=== PATIENT | female | born 1965 | race Two or more races ===

== ENCOUNTER 2017-05-23 18:45 | Emergency (ER) | payer BC, OTHER ==
[2017-05-23] MEDS ORDERED: Albuterol/Ipratropium 3.0-0.5 MG/3 ML Neb Soln NEB ONE (19:18)
--- NOTE | 2017-05-23 19:20 | EDM.PDOC ---
ED HPI GENERAL MEDICAL PROBLEM - General Chief Complaint: Respiratory Problem Stated Complaint: LUNGS Time Seen by Provider: 05/23/17 19:19 Source of Information: Reports: Patient - History of Present Illness INITIAL COMMENTS - FREE TEXT/NARRATIVE: HISTORY AND PHYSICAL: History of present illness: []Patient complains of productive cough with sputum and subjective fever for 1 days no nausea vomiting chills sweats no shortness of breath she states that earlier she had coughing fits that lasted most of the afternoon No chest pain headache dizziness or palpitation no bowel or urine symptoms Review of systems: As per history of present illness and below otherwise all systems reviewed and negative. Past medical history: As per history of present illness and as reviewed below otherwise noncontributory. Surgical history: As per history of present illness and as reviewed below otherwise noncontributory. Social history: No reported history of drug or alcohol abuse. Family history: As per history of present illness and as reviewed below otherwise noncontributory. Physical exam: HEENT: Atraumatic, normocephalic, pupils reactive, negative for conjunctival pallor or scleral icterus, mucous membranes moist, throat clear, neck supple, nontender, trachea midline. Lungs: Clear to auscultation, breath sounds equal bilaterally, chest nontender. Heart: S1S2, regular, negative for clicks, rubs, or JVD. Abdomen: Soft, nondistended, nontender. Negative for masses or hepatosplenomegaly. Negative for costovertebral tenderness. Pelvis: Stable nontender. Genitourinary: Deferred. Rectal: Deferred. Extremities: Atraumatic, negative for cords or calf pain. Neurovascular unremarkable. Neuro: Awake, alert, oriented. Cranial nerves II through XII unremarkable. Cerebellum unremarkable. Motor and sensory unremarkable throughout. Exam nonfocal. Diagnostics: []Chest 2 views Therapeutics: []Humidified air Z-Jimbo Impression: []Acute bronchitis Definitive disposition and diagnosis as appropriate pending reevaluation and review of above. no pain Pain Score (Numeric/FACES): 0 - Related Data Allergies Allergy/AdvReac Type Severity Reaction Status Date / Time Penicillins Allergy Other Verified 05/23/17 19:03 Home Meds: Home Meds ClonazePAM [KlonoPIN] 0.5 mg PO BID 07/12/16 [History] Lisinopril 40 mg PO DAILY 07/12/16 [History] Metoprolol Succinate [Toprol XL] 100 mg PO DAILY 07/12/16 [History] fluvoxaMINE [fluvoxaMINE Maleate] 100 mg PO TID 07/12/16 [History] Past Medical History HEENT History: Reports: None Cardiovascular History: Reports: Hypertension, Other (See Below) Other Cardiovascular History: heart ablation Respiratory History: Reports: None Gastrointestinal History: Reports: None Genitourinary History: Reports: None 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: Musculoskeletal History: Reports: None Neurological History: Reports: None Psychiatric History: Reports: Anxiety, PTSD Endocrine/Metabolic History: Reports: None Hematologic History: Reports: None Immunologic History: Reports: None Oncologic (Cancer) History: Reports: None Dermatologic History: Reports: None - Infectious Disease History Infectious Disease History: Reports: Chicken Pox - Past Surgical History Head Surgeries/Procedures: Reports: None Social & Family History - Family History Family Medical History: Noncontributory - Tobacco Use Smoking Status *Q: Never Smoker - Caffeine Use Caffeine Use: Reports: Tea - Recreational Drug Use Recreational Drug Use: No ED ROS GENERAL - Review of Systems Review Of Systems: ROS reveals no pertinent complaints other than HPI. ED EXAM, GENERAL - Physical Exam Exam: See Below Course - Vital Signs Last Recorded V/S: Last Vital Signs Temp 36.9 C 05/23/17 19:04 Pulse 79 05/23/17 19:04 Resp 18 05/23/17 19:04 BP 141/73 H 05/23/17 19:04 Pulse Ox 98 05/23/17 19:04 - Orders/Labs/Meds Orders: Active Orders 24 hr Category Date Time Status RT Aerosol Therapy [RC] ASDIRECTED Care 05/23/17 19:18 Active Chest 2V [CR] Stat Exams 05/23/17 19:18 Taken Meds: Medications Discontinued Medications Generic Name Dose Route Start Last Admin Trade Name Freq PRN Reason Stop Dose Admin Albuterol/Ipratropium 3 ml 05/23/17 19:18 Duoneb 3.0-0.5 Mg/3 Ml NEB 05/23/17 19:19 ONETIME ONE Departure - Departure Time of Disposition: 20:12 Disposition: Home, Self-Care 01 Condition: Good Clinical Impression: Acute bronchitis - Discharge Information Referrals: PCP,None [Primary Care Provider] - Forms: ED Department Discharge Additional Instructions: Medication as prescribed Return if symptoms persist or worsen Follow-up with primary care in 2 weeks [facility] - [facility] [address] [place] [id number] The following information is given to patients seen in the emergency department who are being discharged to home. This information is to outline your options for follow-up care. We provide all patients seen in our emergency department with a follow-up referral. The need for follow-up, as well as the timing and circumstances, are variable depending upon the specifics of your emergency department visit. If you don't have a primary care physician on staff, we will provide you with a referral. We always advise you to contact your personal physician following an emergency department visit to inform them of the circumstance of the visit and for follow-up with them and/or the need for any referrals to a consulting specialist. The emergency department will also refer you to a specialist when appropriate. This referral assures that you have the opportunity for follow-up care with a specialist. All of these measure are taken in an effort to provide you with optimal care, which includes your follow-up. Under all circumstances we always encourage you to contact your private physician who remains a resource for coordinating your care. When calling for follow-up care, please make the office aware that this follow-up is from your recent emergency room visit. If for any reason you are refused follow-up, please contact the [facility] emergency department at and asked to speak to the emergency department charge nurse. - My Orders Last 24 Hours: My Active Orders 05/23/17 19:18 RT Aerosol Therapy [RC] ASDIRECTED Chest 2V [CR] Stat - Assessment/Plan Last 24 Hours: My Active Orders 05/23/17 19:18 RT Aerosol Therapy [RC] ASDIRECTED Chest 2V [CR] Stat
[2017-05-23 21:50] VITALS: BP 132/70
--- NOTE | 2017-05-24 10:56 | CR ---
EXAM DATE: 05/23/17 PATIENT'S AGE: 51 Patient: LAURA HARRISON Facility: [place], [place] Site . Site : 1965 Study: XRay Chest [id number] 7:40:02 PM Ordering Physician: Heidi Daniels Final Report: INDICATION: Pain, shortness of breath TECHNIQUE: Chest radiograph 2 views COMPARISON: 07/12/16 FINDINGS: Cardiovascular and mediastinum: The cardiac silhouette is normal in appearance and size. Mediastinum is within normal limits. Lungs and pleural spaces: Both lungs are unremarkable in appearance. No sign of pleural effusion. No pneumothorax is seen. Bones and soft tissues: No significant findings. IMPRESSION: 1. No acute cardiopulmonary disease seen. Dictated by: Canelo Prabhakar MD @ 05/23/2017 19:50:55 (Electronic Signature) Report Signed by Proxy. [facility] HOSPITALFelicita
== END 2017-05-23 20:35 | disposition home or self-care (01) ==
LOC: MW.ED 18:45
DX: J20.9 Acute bronchitis, unspecified (principal); I10 Essential (primary) hypertension; F41.9 Anxiety disorder, unspecified; Z79.899 Other long term (current) drug therapy; Z88.0 Allergy status to penicillin
CPT/HCPCS: 71020; 71020-26; 99282; 99283

== ENCOUNTER 2017-05-24 09:47 | Emergency (ER) | payer BC, OTHER ==
[2017-05-24] MEDS ORDERED: Famotidine 20 MG/2 ML SDV IVPUSH ONE (09:58)
[2017-05-24] MEDS ORDERED: diphenhydrAMINE 50 MG/ML SDV IVPUSH ONE (09:58)
[2017-05-24] MEDS ORDERED: methylPREDNISolone Sodium Succinate 125 MG/2 ML SDV IVPUSH ONE (10:05)
--- NOTE | 2017-05-24 10:09 | EDM.PDOC ---
ED HPI GENERAL MEDICAL PROBLEM - General Chief Complaint: Allergic Reaction Stated Complaint: ALLERGIC REACTION - Related Data Allergies Allergy/AdvReac Type Severity Reaction Status Date / Time Penicillins Allergy Other Verified 05/24/17 09:52 Home Meds: Home Meds ClonazePAM [KlonoPIN] 0.5 mg PO BID 07/12/16 [History] Lisinopril 40 mg PO DAILY 07/12/16 [History] Metoprolol Succinate [Toprol XL] 100 mg PO DAILY 07/12/16 [History] fluvoxaMINE [fluvoxaMINE Maleate] 100 mg PO TID 07/12/16 [History] Past Medical History - Past Health History Medical/Surgical History: Denies Medical/Surgical History HEENT History: Reports: None Cardiovascular History: Reports: Hypertension, Other (See Below) Other Cardiovascular History: heart ablation;SVT Respiratory History: Reports: None Gastrointestinal History: Reports: None Genitourinary History: Reports: None 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: Musculoskeletal History: Reports: None Neurological History: Reports: None Psychiatric History: Reports: Anxiety, PTSD Endocrine/Metabolic History: Reports: None Hematologic History: Reports: None Immunologic History: Reports: None Oncologic (Cancer) History: Reports: None Dermatologic History: Reports: None - Infectious Disease History Infectious Disease History: Reports: Chicken Pox - Past Surgical History Head Surgeries/Procedures: Reports: None Social & Family History - Family History Family Medical History: Noncontributory - Tobacco Use Smoking Status *Q: Never Smoker - Caffeine Use Caffeine Use: Reports: Tea - Recreational Drug Use Recreational Drug Use: No Course - Vital Signs Last Recorded V/S: Last Vital Signs Temp 36.6 C 05/24/17 09:47 Pulse 128 H 05/24/17 09:47 Resp 24 H 05/24/17 09:47 BP 193/104 H 05/24/17 09:47 Pulse Ox 98 05/24/17 09:47 - Orders/Labs/Meds Meds: Medications Discontinued Medications Generic Name Dose Route Start Last Admin Trade Name Freq PRN Reason Stop Dose Admin Diphenhydramine HCl 25 mg 05/24/17 09:58 05/24/17 10:04 Benadryl IVPUSH 05/24/17 09:59 25 mg ONETIME ONE Administration Famotidine 20 mg 05/24/17 09:58 10/04/17 10:04 Pepcid IVPUSH 05/24/17 09:59 20 mg ONETIME ONE Administration Methylprednisolone Sodium Succinate 50 mg 05/24/17 10:05 Solu-Medrol IVPUSH 05/24/17 10:06 ONETIME ONE Departure - Discharge Information Referrals: PCP,Unknown [Primary Care Provider] -
--- NOTE | 2017-05-24 10:10 | PCM.SN ---
- Free Text/Narrative Note: This is Dr. Correa dictating addendum note as the supervising physician on this case. I personally seen and evaluated this patient and agree with history and physical as above. On my evaluation there is only minimal edema of the upper aspect of the lateral left lip and the remainder the lips are within normal limits as is the tongue and oropharynx. There is no facial swelling no stridor no shortness of breath and no evidence of any urticarial rash. The patient says she took the Zithromax she was given yesterday when she left the ER and is taking in the past without problems. The patient says she takes blood pressure medications including lisinopril and has been on it many years without a reaction. I discussed with her that she will likely need to stop her lisinopril as this is a very classic presentation of germain-induced angioedema although it is very mild. We will treat her with Benadryl Pepcid and Solu- Medrol and advised her to contact her provider for change of medications for her hypertension we'll continue to monitor here and disposition appropriately.
--- NOTE | 2017-05-24 11:02 | EDM.PDOC ---
<Jesus Hein Z - Last Filed: 05/24/17 11:21> ED HPI GENERAL MEDICAL PROBLEM - General Chief Complaint: Allergic Reaction Stated Complaint: ALLERGIC REACTION Time Seen by Provider: 05/24/17 09:48 Source of Information: Reports: Patient History Limitations: Reports: No Limitations - History of Present Illness INITIAL COMMENTS - FREE TEXT/NARRATIVE: HISTORY AND PHYSICAL: History of present illness: 51-year-old female presenting with angioedema isolated to the left lateral upper lip. Patient states that she had just eaten barbecue ribs as well as a salad this morning and right after she noticed swelling of her upper left lip, she became very concerned and immediately decided to come to the ER. Patient states that she's never had an allergic reaction in the past causing swelling of her lips or respiratory compromise. Aside from penicillins she is not aware of any other medical allergies. She is unaware of any food allergies. She was just diagnosed with acute bronchitis last night and was given azithromycin which she took yesterday. She has been on azithromycin in the past and has never had an allergic reaction, nor does she feel that she had any allergic reaction to it at this point in time. She has been taking lisinopril for the past 10 years without any allergic reaction that she is aware of. The last time she took lisinopril was yesterday morning. Review of systems: As per history of present illness and below otherwise all systems reviewed and negative. Past medical history: As per history of present illness and as reviewed below otherwise noncontributory. Surgical history: As per history of present illness and as reviewed below otherwise noncontributory. Social history: No reported history of drug or alcohol abuse. Family history: As per history of present illness and as reviewed below otherwise noncontributory. Physical exam: Constitutional: Patient appears very agitated/anxious secondary to concerns about allergic reaction HEENT: Atraumatic, normocephalic, pupils reactive, negative for conjunctival pallor or scleral icterus, mucous membranes moist, angioedema/swelling of lateral left upper lip, the rest of the aspects of the lips appear normal, throat clear no signs of swelling nor any stridor heard, neck supple, nontender , trachea midline. Lungs: Clear to auscultation, breath sounds equal bilaterally, chest nontender. Heart: S1S2, regular, negative for clicks, rubs, or JVD. Abdomen: Soft, nondistended, nontender. Negative for masses or hepatosplenomegaly. Pelvis: Stable nontender. Genitourinary: Deferred. Rectal: Deferred. Extremities: Atraumatic, no swelling appreciated in all 4 extremities Neuro: Awake, alert, oriented. Cranial nerves II through XII unremarkable. Diagnostics: None Therapeutics: Initial ER management : Benadryl, Pepcid, Solu-Medrol. Reassessment: 30 minutes after patient receiving Benadryl, Pepcid, Solu-Medrol patient appears more calm, angioedema of the left upper lip is improving, no signs of any point in time of respiratory compromise. Impression: 51-year-old female on lisinopril for hypertension presenting with acute angioedema isolated to the left lateral upper lip, most likely etiology is lisinopril-induced angioedema allergic reaction. Plan: Patient after therapeutic intervention with Benadryl Pepcid and Solu-Medrol is stable. Patient did not at any point in time during the ER visit to have worsening symptoms of allergic reaction nor any respiratory distress. Patient shall be sent home with the recommendation to stop taking lisinopril and follow up with her primary care physician within 1 to 2 days for reassessment of her medications. Patient has been given prednisone taper dose for 3 days as well as Benadryl for her allergic reaction, and has been told that if she has worsening of her symptoms including respiratory compromise, stridor, wheezing to coming to the ER immediately or follow up with her primary care for assessment. Definitive disposition and diagnosis as appropriate pending reevaluation and review of above. - Related Data Allergies Allergy/AdvReac Type Severity Reaction Status Date / Time Penicillins Allergy Other Verified 05/24/17 09:52 Home Meds: Home Meds ClonazePAM [KlonoPIN] 0.5 mg PO BID 07/12/16 [History] Lisinopril 40 mg PO DAILY 07/12/16 [History] Metoprolol Succinate [Toprol XL] 100 mg PO DAILY 07/12/16 [History] fluvoxaMINE [fluvoxaMINE Maleate] 100 mg PO TID 07/12/16 [History] diphenhydrAMINE HCl [Benadryl Allergy] 25 mg PO Q4HR PRN 3 Days #18 tablet 05/24 [Rx] predniSONE [Prednisone] 10 mg PO DAILY #4 tablet 05/24/17 [Rx] Past Medical History - Past Health History Medical/Surgical History: Denies Medical/Surgical History HEENT History: Reports: None Cardiovascular History: Reports: Hypertension, Other (See Below) Other Cardiovascular History: heart ablation;SVT Respiratory History: Reports: None Gastrointestinal History: Reports: None Genitourinary History: Reports: None 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 History: Reports: None Neurological History: Reports: None Psychiatric History: Reports: Anxiety, PTSD Endocrine/Metabolic History: Reports: None Hematologic History: Reports: None Immunologic History: Reports: None Oncologic (Cancer) History: Reports: None Dermatologic History: Reports: None - Infectious Disease History Infectious Disease History: Reports: Chicken Pox - Past Surgical History Head Surgeries/Procedures: Reports: None Social & Family History - Family History Family Medical History: Noncontributory - Tobacco Use Smoking Status *Q: Never Smoker - Caffeine Use Caffeine Use: Reports: Tea - Recreational Drug Use Recreational Drug Use: No ED ROS ALLERGIC REACTION - Review of Systems Review Of Systems: ROS reveals no pertinent complaints other than HPI. ED EXAM GENERAL NO PERIP PULSE - Physical Exam Exam: See Below (Please refer to history of presenting illness) Course - Vital Signs Last Recorded V/S: Last Vital Signs Temp 36.6 C 05/24/17 09:47 Pulse 76 05/24/17 11:37 Resp 15 05/24/17 11:37 BP 129/79 05/24/17 11:37 Pulse Ox 98 05/24/17 11:37 - Orders/Labs/Meds Meds: Medications Discontinued Medications Generic Name Dose Route Start Last Admin Trade Name Brii PRN Reason Stop Dose Admin Diphenhydramine HCl 25 mg 05/24/17 09:58 05/24/17 10:04 Benadryl IVPUSH 05/24/17 09:59 25 mg ONETIME ONE Administration Famotidine 20 mg 05/24/17 09:58 05/24/17 10:04 Pepcid IVPUSH 05/24/17 09:59 20 mg ONETIME ONE Administration Methylprednisolone Sodium Succinate 50 mg 05/24/17 10:05 05/24/17 10:11 Solu-Medrol IVPUSH 05/24/17 10:06 50 mg ONETIME ONE Administration Departure - Departure Time of Disposition: 11:15 Disposition: Home, Self-Care 01 Clinical Impression: Angioedema of lips - Discharge Information Prescriptions: diphenhydrAMINE HCl [Benadryl Allergy] 25 mg PO Q4HR PRN 3 Days #18 tablet PRN Reason: Allergies predniSONE [Prednisone] 10 mg PO DAILY #4 tablet Instructions: Angioedema, [id number] Referrals: PCP,Unknown [Primary Care Provider] - Additional Instructions: The following information is given to patients seen in the emergency department who are being discharged to home. This information is to outline your options for follow-up care. We provide all patients seen in our emergency department with a follow-up referral. The need for follow-up, as well as the timing and circumstances, are variable depending upon the specifics of your emergency department visit. If you don't have a primary care physician on staff, we will provide you with a referral. We always advise you to contact your personal physician following an emergency department visit to inform them of the circumstance of the visit and for follow-up with them and/or the need for any referrals to a consulting specialist. The emergency department will also refer you to a specialist when appropriate. This referral assures that you have the opportunity for follow-up care with a specialist. All of these measure are taken in an effort to provide you with optimal care, which includes your follow-up. Under all circumstances we always encourage you to contact your private physician who remains a resource for coordinating your care. When calling for follow-up care, please make the office aware that this follow-up is from your recent emergency room visit. If for any reason you are refused follow-up, please contact the [facility] Emergency Department at and asked to speak to the emergency department charge nurse. Diagnosis: Angioedema of left lateral upper lip with no changes to aspects of the lips Impressions/follow-up: Based on your history and physical examination you have had a allergic reaction likely secondary to your lisinopril medication causing edema isolated to the left upper aspect of her lip. You did not have any respiratory compromise. You received a dose of Benadryl, Solu-Medrol, Pepcid while in the ER. You well need to see your primary care physician for reassessment of your lisinopril medication. For your allergic reaction I have prescribed Prednisone for 3 days. Take 2 tablets first day and 1 tablet for the next two days. As well I have prescribed Benadryl that you can take every 4 hours as needed. If you have any worsening symptoms secondary to allergic reaction please do not hesitate to come back to the ER or your primary care physician. <Nancy Correa - Last Filed: 05/24/17 15:19> Departure - Departure Condition: Good
[2017-05-24 11:37] VITALS: BP 129/79
== END 2017-05-24 11:37 | disposition home or self-care (01) ==
LOC: MW.ED 09:47
DX: T78.3XXA Angioneurotic edema, initial encounter (principal); I10 Essential (primary) hypertension; F41.9 Anxiety disorder, unspecified; F43.10 Post-traumatic stress disorder, unspecified; Z79.899 Other long term (current) drug therapy; Z88.0 Allergy status to penicillin
CPT/HCPCS: 96374; 96375; 99284; J1200; J2930; 99283

== ENCOUNTER 2017-09-05 15:19 | Emergency (ER) | payer BC, OTHER ==
[2017-09-05 15:32] VITALS: BP 178/79
[2017-09-05] MEDS ORDERED: methylPREDNISolone Sodium Succinate 125 MG/2 ML SDV IVPUSH ONE (15:34)
--- NOTE | 2017-09-05 15:35 | EDM.PDOC ---
ED HPI GENERAL MEDICAL PROBLEM - General Chief Complaint: Allergic Reaction Stated Complaint: SWELLING IN THROAT Time Seen by Provider: 09/05/17 15:20 - History of Present Illness INITIAL COMMENTS - FREE TEXT/NARRATIVE: HISTORY AND PHYSICAL: History of present illness: Patient 51-year-old white female with history of prior angioedema thought to be due to DEREK inhibitor was not currently on suction presents with concern of lip swelling. She is unsure the etiology is quite anxious upon arrival pulse oxes stabilizer vital signs. Review of systems: As per history of present illness and below otherwise all systems reviewed and negative. Past medical history: As per history of present illness and as reviewed below otherwise noncontributory. Surgical history: As per history of present illness and as reviewed below otherwise noncontributory. Social history: No reported history of drug or alcohol abuse. Family history: As per history of present illness and as reviewed below otherwise noncontributory. Physical exam: HEENT: Lip swelling noted I would categorize this is mild intra-edema lower lip greater than upper left throat swelling Atraumatic, normocephalic, pupils reactive, negative for conjunctival pallor or scleral icterus, mucous membranes moist, throat clear, neck supple, nontender, trachea midline. Lungs: Clear to auscultation, breath sounds equal bilaterally, chest nontender. Heart: S1S2, regular, negative for clicks, rubs, or JVD. Abdomen: Soft, nondistended, nontender. Negative for masses or hepatosplenomegaly. Negative for costovertebral tenderness. Pelvis: Stable nontender. Genitourinary: Deferred. Rectal: Deferred. Extremities: Atraumatic, negative for cords or calf pain. Neurovascular unremarkable. Neuro: Awake, alert, oriented. Cranial nerves II through XII unremarkable. Cerebellum unremarkable. Motor and sensory unremarkable throughout. Exam nonfocal. Diagnostics: None Therapeutics: Solu-Medrol 125 mg IV Impression: #1 angioedema Definitive disposition and diagnosis as appropriate pending reevaluation and review of above. - Related Data Allergies Allergy/AdvReac Type Severity Reaction Status Date / Time Penicillins Allergy Other Verified 05/24/17 09:52 Home Meds: Home Meds ClonazePAM [KlonoPIN] 0.5 mg PO BID 07/12/16 [History] Metoprolol Succinate [Toprol XL] 100 mg PO DAILY 07/12/16 [History] fluvoxaMINE [fluvoxaMINE Maleate] 100 mg PO TID 07/12/16 [History] diphenhydrAMINE HCl [Benadryl Allergy] 25 mg PO Q4HR PRN 3 Days #18 tablet 05/24 [Rx] Past Medical History - Past Health History Medical/Surgical History: Denies Medical/Surgical History HEENT History: Reports: None Cardiovascular History: Reports: Hypertension, Other (See Below) Other Cardiovascular History: heart ablation;SVT Respiratory History: Reports: None Gastrointestinal History: Reports: None Genitourinary History: Reports: None 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: Musculoskeletal History: Reports: None Neurological History: Reports: None Psychiatric History: Reports: Anxiety, PTSD Endocrine/Metabolic History: Reports: None Hematologic History: Reports: None Immunologic History: Reports: None Oncologic (Cancer) History: Reports: None Dermatologic History: Reports: None - Infectious Disease History Infectious Disease History: Reports: Chicken Pox - Past Surgical History Head Surgeries/Procedures: Reports: None Social & Family History - Family History Family Medical History: Noncontributory - Tobacco Use Smoking Status *Q: Never Smoker - Caffeine Use Caffeine Use: Reports: Tea - Recreational Drug Use Recreational Drug Use: No ED ROS ALLERGIC REACTION - Review of Systems Review Of Systems: ROS reveals no pertinent complaints other than HPI. ED EXAM GENERAL NO PERIP PULSE - Physical Exam Exam: See Below (See dictation) Course - Vital Signs Last Recorded V/S: Last Vital Signs Temp 36.7 C 09/05/17 15:30 Pulse 78 09/05/17 15:30 Resp 18 09/05/17 15:30 BP 178/79 H 09/05/17 15:30 Pulse Ox 97 09/05/17 15:30 Departure - Departure Time of Disposition: 15:34 Disposition: Home, Self-Care 01 Condition: Good Clinical Impression: Angioedema of lips - Discharge Information Referrals: Te Lacy MD [Primary Care Provider] - Additional Instructions: The following information is given to patients seen in the emergency department who are being discharged to home. This information is to outline your options for follow-up care. We provide all patients seen in our emergency department with a follow-up referral. The need for follow-up, as well as the timing and circumstances, are variable depending upon the specifics of your emergency department visit. If you don't have a primary care physician on staff, we will provide you with a referral. We always advise you to contact your personal physician following an emergency department visit to inform them of the circumstance of the visit and for follow-up with them and/or the need for any referrals to a consulting specialist. The emergency department will also refer you to a specialist when appropriate. This referral assures that you have the opportunity for followup care with a specialist. All of these measure are taken in an effort to provide you with optimal care, which includes your followup. Under all circumstances we always encourage you to contact your private physician who remains a resource for coordinating your care. When calling for followup care, please make the office aware that this follow-up is from your recent emergency room visit. If for any reason you are refused follow-up, please contact the [facility] emergency department at and asked to speak to the emergency department charge nurse. Medrol is prescribed Benadryl as directed follow-up private medical doctor in 2 days return as needed as discussed
== END 2017-09-05 18:05 | disposition home or self-care (01) ==
LOC: MW.ED 15:19
DX: T78.3XXA Angioneurotic edema, initial encounter (principal); I10 Essential (primary) hypertension; Z88.0 Allergy status to penicillin; Z79.899 Other long term (current) drug therapy
CPT/HCPCS: 96374; 99283; J2930; 99282

== ENCOUNTER 2018-01-23 10:17 | Emergency (ER) | payer BC, OTHER ==
[2018-01-23 11:12] LABS: CHLORIDE,CL 98 mmol/L (98-107); SODIUM,NA 133 mmol/L (136-145)
--- NOTE | 2018-01-23 11:28 | EDM.PDOC ---
ED HPI GENERAL MEDICAL PROBLEM - General Chief Complaint: Cardiovascular Problem Stated Complaint: SOB Time Seen by Provider: 01/23/18 10:27 Source of Information: Reports: Patient History Limitations: Reports: No Limitations - History of Present Illness INITIAL COMMENTS - FREE TEXT/NARRATIVE: Presents via EMS. The patient states she has a long history of palpitations. She takes metoprolol for management which usually keeps them under control although she occasionally has breakthroughs. This morning she was over at the [facility] when she had 5 of her palpitation triggers all at once: She was "in a tovar", she was in the elevator where it was very hot, she drank caffeinated coffee which she usually does not, her was "bothering her" and her metoprolol was not "on board yet". She immediately began caratid massage and then biofeedback and by the time EMS got there, her palpitations had subsided. She still wanted to come to the ER to be checked out because she is leaving for her daughter's wedding in [place] later today. 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 - Related Data Allergies Allergy/AdvReac Type Severity Reaction Status Date / Time Penicillins Allergy Other Verified 01/23/18 10:28 Home Meds: Home Meds ClonazePAM [KlonoPIN] 0.5 mg PO BID PRN 07/12/16 [History] Metoprolol Succinate [Toprol XL] 100 mg PO DAILY 07/12/16 [History] fluvoxaMINE [fluvoxaMINE Maleate] 100 mg PO TID 07/12/16 [History] Cetirizine [ZyrTEC] 10 mg PO DAILY 01/23/18 [History] Cholecalciferol (Vitamin D3) [Vitamin D3] 1,000 unit PO DAILY 01/23/18 [History] EPINEPHrine [Epipen] 0.3 mg IM ASDIRECTED PRN 01/23/18 [History] Hydrochlorothiazide 25 mg PO DAILY 01/23/18 [History] Multivitamin [Daily Adarsh] 1 each PO DAILY 01/23/18 [History] Past Medical History - Past Health History Medical/Surgical History: Denies Medical/Surgical History HEENT History: Reports: None Cardiovascular History: Reports: Hypertension, Other (See Below) Other Cardiovascular History: heart ablation;SVT Respiratory History: Reports: None Gastrointestinal History: Reports: None Genitourinary History: Reports: None 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: Musculoskeletal History: Reports: None Neurological History: Reports: None Psychiatric History: Reports: Anxiety, PTSD Endocrine/Metabolic History: Reports: None Hematologic History: Reports: None Immunologic History: Reports: None Oncologic (Cancer) History: Reports: None Dermatologic History: Reports: None - Infectious Disease History Infectious Disease History: Reports: Chicken Pox - Past Surgical History Head Surgeries/Procedures: Reports: None HEENT Surgical History: Reports: Other (See Below) Other HEENT Surgeries/Procedures: Rhinoplasty Cardiovascular Surgical History: Reports: Cardiac Ablation Social & Family History - Family History Family Medical History: Noncontributory - Tobacco Use Smoking Status *Q: Never Smoker - Caffeine Use Caffeine Use: Reports: None - Recreational Drug Use Recreational Drug Use: No ED ROS GENERAL - Review of Systems Review Of Systems: ROS reveals no pertinent complaints other than HPI. ED EXAM, GENERAL - Physical Exam Exam: See Below Exam Limited By: No Limitations General Appearance: Alert, No Apparent Distress Ears: Normal External Exam, Normal TMs Nose: Normal Inspection Throat/Mouth: Normal Inspection Head: Atraumatic, Normocephalic Neck: Normal Inspection Respiratory/Chest: No Respiratory Distress, Lungs Clear, Normal Breath Sounds Cardiovascular: Normal Peripheral Pulses, Regular Rate, Rhythm, No Murmur GI/Abdominal: Soft Neurological: Alert, Oriented Psychiatric: Anxious (mild) Skin Exam: Warm, Dry, Intact, Normal Color, No Rash Lymphatic: No Adenopathy Course - Vital Signs Last Recorded V/S: Last Vital Signs Temp 37.1 C 01/23/18 10:28 Pulse 92 01/23/18 10:28 Resp 18 01/23/18 10:28 BP 192/87 H 01/23/18 10:28 Pulse Ox 97 01/23/18 10:28 - Orders/Labs/Meds Orders: Active Orders 24 hr Category Date Time Status EKG Documentation Completion [RC] STAT Care 01/23/18 10:39 Active GLYCOSYLATED HEMOGLOBIN,HGBA1C [CHEM] Stat Lab 01/23/18 10:42 Received Labs: Laboratory Tests 01/23/18 01/23/18 01/23/18 Range/Units 10:26 10:26 10:26 WBC 7.88 (4.0-11.0) K/uL RBC 4.99 (4.30-5.90) M/uL Hgb 15.2 (12.0-16.0) g/dL Hct 43.8 (36.0-46.0) % MCV 87.8 (80.0-98.0) fL MCH 30.5 (27.0-32.0) pg MCHC 34.7 (31.0-37.0) g/dL RDW Std Deviation 44.3 (28.0-62.0) fl RDW Coeff of Sulma 14 (11.0-15.0) % Plt Count 165 (150-400) K/uL MPV 11.00 (7.40-12.00) fL Neut % (Auto) 54.9 (48.0-80.0) % Lymph % (Auto) 31.6 (16.0-40.0) % [place] % (Auto) 9.3 (0.0-15.0) % Eos % (Auto) 3.8 (0.0-7.0) % Baso % (Auto) 0.4 (0.0-1.5) % Neut # (Auto) 4.3 (1.4-5.7) K/uL Lymph # (Auto) 2.5 H (0.6-2.4) K/uL [place] # (Auto) 0.7 (0.0-0.8) K/uL Eos # (Auto) 0.3 (0.0-0.7) K/uL Baso # (Auto) 0.0 (0.0-0.1) K/uL Nucleated RBC % 0.0 /100WBC Nucleated RBCs # 0 K/uL Sodium 133 L (136-145) mmol/L Potassium 3.4 L (3.5-5.1) mmol/L Chloride 98 (98-107) mmol/L Carbon Dioxide 24.4 (21.0-32.0) mmol/L BUN 15 (7.0-18.0) mg/dL Creatinine 0.9 (0.6-1.0) mg/dL Est Cr Clr Drug Dosing 68.45 mL/min Estimated GFR (MDRD) > 60.0 ml/min Glucose 344 H (74-106) mg/dL Calcium 8.8 (8.5-10.1) mg/dL Total Bilirubin 0.4 (0.2-1.0) mg/dL AST 62 H (15-37) IU/L ALT 102 H (14-63) IU/L Alkaline Phosphatase 97 (46-116) U/L Troponin I < 0.050 (0.000-0.056) ng/mL Total Protein 7.5 (6.4-8.2) g/dL Albumin 3.8 (3.4-5.0) g/dL Globulin 3.7 H (2.0-3.5) g/dL Albumin/Globulin Ratio 1.0 L (1.3-2.8) - Re-Assessments/Exams Free Text/Narrative Re-Assessment/Exam: 01/23/18 12:18 Long discussion with the patient re: new dx diabetes. The patient states that she was prediabetic before and she was wondering if she hadn't become diabetic. She know she needs to lose weight and change her diet. 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 I explained to the patient that generally I would send newly diagnosed diabetics from the ER to primary care for a complete evaluation, treatment plan and medication prescriptions. In her case I am going to give her a couple of weeks of metformin twice a day along with dietary instructions. She is on her way to her daughter's large wedding in [place] which will be in 4 days. We will get her appointments to cardiology, primary care and diabetes education upon her return. She understands that if she has any problems along the way she is to stop immediately at an ER. Common and serious adverse effects related to metformin were discussed with the patient and she voices understanding. Departure - Departure Time of Disposition: 12:24 Disposition: Home, Self-Care 01 Condition: Good Clinical Impression: Diabetes type 2, uncontrolled Qualifiers: Diabetes mellitus buttermaker insulin use: without halfway use Diabetes mellitus complication status: without complication Qualified Code(s): E11.65 - Type 2 diabetes mellitus with hyperglycemia Referrals: PCP,Unknown [Primary Care Provider] - Barrington Lemus MD [Physician] - Forms: ED Department Discharge Additional Instructions: 1. Metformin 500mg twice daily. 2. Follow diabetic diet as per instruction sheet provided. 3. Drink plenty of fluids. NO CAFFEINE! 4. You have an appointment with Dr. Lemus, internal medicine, on February 07 at 2:30pm at [facility]. 5. You have an appointment with the early childhood special educator on MondayFebruary 08 at 9:30 am at [facility]. 6. If at any time during your journey you become lightheaded, have palpitations which do not resolve with your usual methods, have vomiting or other worrisome symptoms, stop at an ER. - My Orders Last 24 Hours: My Active Orders 01/23/18 10:39 EKG Documentation Completion [RC] STAT 01/23/18 10:42 GLYCOSYLATED HEMOGLOBIN,HGBA1C [CHEM] Stat - Assessment/Plan Last 24 Hours: My Active Orders 01/23/18 10:39 EKG Documentation Completion [RC] STAT 01/23/18 10:42 GLYCOSYLATED HEMOGLOBIN,HGBA1C [CHEM] Stat
[2018-01-23 13:22] VITALS: BP 153/84
== END 2018-01-23 13:15 | disposition home or self-care (01) ==
LOC: MW.ED 10:17
DX: E11.65 Type 2 diabetes mellitus with hyperglycemia (principal); I10 Essential (primary) hypertension; Z88.0 Allergy status to penicillin; Z79.899 Other long term (current) drug therapy
CPT/HCPCS: 36415; 80053; 83036; 84484; 85025; 93005; 99283; 99285-25

== ENCOUNTER 2020-05-04 18:00 | Emergency (ER) | payer BC ==
[2020-05-04] MEDS ORDERED: Ibuprofen 600 MG Tab PO ONE (18:03)
[2020-05-04] MEDS ORDERED: Hydrochlorothiazide 25 MG Tab PO ONE (18:03)
[2020-05-04] MEDS ORDERED: Acetaminophen 500 MG Tab PO ONE (18:03)
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
[2020-05-04 19:43] VITALS: BP 142/73; PULSE 65
== END 2020-05-04 18:34 | disposition home or self-care (01) ==
LOC: MW.ED 18:00
DX: R51 Headache (principal); M25.512 Pain in left shoulder; I10 Essential (primary) hypertension; F41.9 Anxiety disorder, unspecified; F43.10 Post-traumatic stress disorder, unspecified; Z88.8 Allergy status to other drugs, medicaments and biological substances; Z79.899 Other long term (current) drug therapy; V49.9XXA Car occupant (driver) (passenger) injured in unspecified traffic accident, initial encounter
CPT/HCPCS: 99284; A9270

== ENCOUNTER 2020-10-23 17:29 | Emergency (ER) | payer SELFPAY ==
[2020-10-23] MEDS ORDERED: Sodium Chloride 0.9% 2.5 ML Syringe FLUSH PRN (17:31)
[2020-10-23] MEDS ORDERED: Sodium Chloride 0.9% 10 ML Syringe FLUSH PRN (17:31)
--- NOTE | 2020-10-23 17:40 | EDM.PDOC ---
ED HPI GENERAL MEDICAL PROBLEM - General Chief Complaint: Chest Pain Stated Complaint: CHEST PAIN Time Seen by Provider: 10/23/20 17:31 Source of Information: Reports: Patient History Limitations: Reports: No Limitations - History of Present Illness INITIAL COMMENTS - FREE TEXT/NARRATIVE: 54-year-old female with history of anxiety, SVT ablation 10 years ago presents with palpitation. She was getting in an arguement with her and she became anxious and started feeling her heart beating fast, this occurred 1.5 hours ago. She currently feels much improved. She took clonazepam and propranolol when this happened. She denies fever, chills, cough, chest pain, palpitations now, shortness of breath, nausea, vomiting. ROS: A 10-point review of systems, other than pertinent positives and negatives as stated per HPI, is otherwise negative Past medical history: No additional pertinent history Past Surgical history: No additional pertinent history Social history: No additional pertinent history Family history: No additional pertinent history PHYSICAL EXAM General: AOx4, GCS = 15, anxious, tearful, mild distress HEENT: dry mucous membrane Neck: supple, no meningismus, no Kernig or Brudzinski Cardiac: S1S2 RRR Respiratory: CTAB, no crackles or rales, no wheezing Abdomen: Soft, nontender, no rebound or guarding, nondistended, no pulsatile mass. Back: nontender Musculoskeletal: NVI distally, no deformity Neuro: No focal deficits, CN 2 - 12 WNL. - Related Data Allergies Allergy/AdvReac Type Severity Reaction Status Date / Time lisinopril Allergy Anaphylactic Verified 05/04/20 18:11 Shock Home Meds: Home Meds ClonazePAM [KlonoPIN] 0.5 mg PO BID PRN 07/12/16 [History] fluvoxaMINE [fluvoxaMINE Maleate] 100 mg PO TID 07/12/16 [History] Cetirizine [ZyrTEC] 10 mg PO DAILY PRN 01/23/18 [History] EPINEPHrine [Epipen] 0.3 mg IM ASDIRECTED PRN 01/23/18 [History] hydroCHLOROthiazide [Hydrochlorothiazide] 25 mg PO DAILY 01/23/18 [History] metFORMIN [Glucophage] 500 mg PO BIDMEALS #60 tab 01/23/18 [Rx] Fexofenadine [Karley] 30 mg PO DAILY PRN 06/14/18 [History] Propranolol [Inderal] 50 mg PO TID 05/04/20 [History] hydroCHLOROthiazide [Hydrochlorothiazide] 25 mg PO DAILY #30 tablet 05/04/20 [Rx] Past Medical History - Past Health History Medical/Surgical History: Denies Medical/Surgical History HEENT History: Reports: None Cardiovascular History: Reports: Hypertension, Other (See Below) Other Cardiovascular History: heart ablation;SVT Respiratory History: Reports: None Gastrointestinal History: Reports: None Genitourinary History: Reports: None 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: Musculoskeletal History: Reports: None Neurological History: Reports: None Psychiatric History: Reports: Anxiety, PTSD Endocrine/Metabolic History: Reports: None Hematologic History: Reports: None Immunologic History: Reports: None Oncologic (Cancer) History: Reports: None Dermatologic History: Reports: None - Infectious Disease History Infectious Disease History: Reports: Chicken Pox - Past Surgical History Head Surgeries/Procedures: Reports: None HEENT Surgical History: Reports: Other (See Below) Other HEENT Surgeries/Procedures: Rhinoplasty Cardiovascular Surgical History: Reports: Cardiac Ablation Respiratory Surgical History: Reports: None GI Surgical History: Reports: None Female Surgical History: Reports: None Endocrine Surgical History: Reports: None Musculoskeletal Surgical History: Reports: None Oncologic Surgical History: Reports: None Dermatological Surgical History: Reports: None Social & Family History - Family History Family Medical History: No Pertinent Family History - Caffeine Use Caffeine Use: Reports: None ED ROS GENERAL - Review of Systems Review Of Systems: See Below (see dictation) ED EXAM, GENERAL - Physical Exam Exam: See Below (see dictation) #1 Interpretation EKG Interpretation Comments: Heart rate = 75 bpm, normal sinus rhythm, normal QRS interval, no STEMI. EKG and rhythm strip interpreted by me at 1729 Course - Orders/Labs/Meds Orders: Active Orders 24 hr Category Date Time Status Cardiac Monitoring [RC] . DIRECTED Care 10/23/20 17:31 Active EKG Documentation Completion [RC] STAT Care 10/23/20 17:32 Active Pulse Oximetry [RC] ASDIRECTED Care 10/23/20 17:31 Active Chest 1V Frontal [CR] Stat Exams 10/23/20 17:32 Ordered Lactated Ringers [Ringers, Lactated] 1,000 ml Med 10/23/20 17:51 Ordered IV .BOLUS Sodium Chloride 0.9% [Saline Flush] Med 10/23/20 17:31 Active 10 ml FLUSH ASDIRECTED PRN Sodium Chloride 0.9% [Saline Flush] Med 10/23/20 17:31 Active 2.5 ml FLUSH ASDIRECTED PRN Saline Lock Insert [OM.PC] Stat Oth 10/23/20 17:31 Ordered Medication Orders Lactated Ringer's (Ringers, Lactated) 1,000 mls @ 999 mls/hr IV .BOLUS ONE Stop: 10/23/20 18:51 Last Admin: 10/23/20 18:00 Dose: 999 mls/hr Documented by: Sodium Chloride (Saline Flush) 2.5 ml FLUSH ASDIRECTED PRN PRN Reason: Keep Vein Open Last Admin: 10/23/20 18:01 Dose: 2.5 ml Documented by: Sodium Chloride (Saline Flush) 10 ml FLUSH ASDIRECTED PRN PRN Reason: Keep Vein Open Last Admin: 10/23/20 18:01 Dose: 10 ml Documented by: Labs: Laboratory Tests 10/23/20 10/23/20 Range/Units 17:40 17:40 WBC 9.99 (4.0-11.0) K/uL RBC 4.78 (4.30-5.90) M/uL Hgb 14.3 (12.0-16.0) g/dL Hct 43.1 (36.0-46.0) % MCV 90.2 (80.0-98.0) fL MCH 29.9 (27.0-32.0) pg MCHC 33.2 (31.0-37.0) g/dL RDW Std Deviation 49.4 (28.0-62.0) fl RDW Coeff of Sulma 15 (11.0-15.0) % Plt Count 214 (150-400) K/uL MPV 11.70 (7.40-12.00) fL Neut % (Auto) 62.6 (48.0-80.0) % Lymph % (Auto) 22.0 (16.0-40.0) % [place] % (Auto) 9.4 (0.0-15.0) % Eos % (Auto) 5.4 (0.0-7.0) % Baso % (Auto) 0.6 (0.0-1.5) % Neut # (Auto) 6.3 H (1.4-5.7) K/uL Lymph # (Auto) 2.2 (0.6-2.4) K/uL [place] # (Auto) 0.9 H (0.0-0.8) K/uL Eos # (Auto) 0.5 (0.0-0.7) K/uL Baso # (Auto) 0.1 (0.0-0.1) K/uL Nucleated RBC % 0.0 /100WBC Nucleated RBCs # 0 K/uL Sodium 140 (136-145) mmol/L Potassium 3.8 (3.5-5.1) mmol/L Chloride 102 (98-107) mmol/L Carbon Dioxide 26.1 (21.0-32.0) mmol/L BUN 12 (7.0-18.0) mg/dL Creatinine 0.8 (0.6-1.0) mg/dL Est Cr Clr Drug Dosing TNP Estimated GFR (MDRD) > 60.0 ml/min Glucose 147 H (74-106) mg/dL Calcium 9.8 (8.5-10.1) mg/dL Total Bilirubin 0.2 (0.2-1.0) mg/dL AST 43 H (15-37) IU/L ALT 75 H (14-63) IU/L Alkaline Phosphatase 87 (46-116) U/L Troponin I < 0.050 (0.000-0.056) ng/mL Total Protein 7.4 (6.4-8.2) g/dL Albumin 3.8 (3.4-5.0) g/dL Globulin 3.6 (2.6-4.0) g/dL Albumin/Globulin Ratio 1.1 (0.9-1.6) Meds: Medications Generic Name Dose Route Start Last Admin Trade Name Freq PRN Reason Stop Dose Admin Lactated Ringer's 1,000 mls @ 999 mls/hr 10/23/20 17:51 10/23/20 18:00 Ringers, Lactated IV 10/23/20 18:51 999 mls/hr .BOLUS ONE Administration Sodium Chloride 2.5 ml 10/23/20 17:31 10/23/20 18:01 Saline Flush FLUSH 2.5 ml ASDIRECTED PRN Administration Keep Vein Open Sodium Chloride 10 ml 10/23/20 17:31 10/23/20 18:01 Saline Flush FLUSH 10 ml ASDIRECTED PRN Administration Keep Vein Open Discontinued Medications Generic Name Dose Route Start Last Admin Trade Name Freq PRN Reason Stop Dose Admin Lorazepam 2 mg 10/23/20 17:51 10/23/20 17:59 Ativan IVPUSH 10/23/20 17:52 2 mg ONETIME ONE Administration - Re-Assessments/Exams Free Text/Narrative Re-Assessment/Exam: 10/23/20 18:54 After 2 mg IV Ativan in the ER, the patient improved and is currently stable for discharge. I performed a repeat exam and did not appreciate new abnormal findings. Patient exhibits normal vital signs and has a normal gait on road test. I advised the patient to return to the ER for reevaluation if symptoms worsened, including fever, worsening pain, or any other worrisome symptoms. I instructed the patient to follow up with Dr. Mims within 2-3 days. MEDICAL DECISION MAKING: I reviewed the patients past medical records, lab and radiographic findings. I discussed the case with the patient. My differential diagnosis included: Tachyarrhythmia, anxiety, palpitation. Patient's symptoms are consistent with anxiety, her EKG was unremarkable, there were no PVCs or arrhythmia finding on the EKG. She was on tenderizer tender for prolonged observation with no abnormalities found. Her symptoms improved after IV Ativan. 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 Departure - Departure Time of Disposition: 19:00 Disposition: Home, Self-Care 01 Condition: Good Clinical Impression: Palpitations, Anxiety - Discharge Information *PRESCRIPTION DRUG MONITORING PROGRAM REVIEWED*: Not Applicable *COPY OF PRESCRIPTION DRUG MONITORING REPORT IN PATIENT ORLIN: Not Applicable Instructions: Supporting Someone With Anxiety, Palpitations Referrals: Te Lacy MD [Primary Care Provider] - 3 Days Jennie Cevallos MD [Physician] - 3 Days Forms: ED Department Discharge Additional Instructions: The need for follow-up, as well as the timing and circumstances, are variable depending upon the specifics of your emergency department visit. If you don't have a primary care physician on staff, we will provide you with a referral. We always advise you to contact your personal physician following an emergency department visit to inform them of the circumstance of the visit and for follow-up with them and/or the need for any referrals to a consulting specialist. The emergency department will also refer you to a specialist when appropriate. This referral assures that you have the opportunity for follow-up care with a specialist. All of these measure are taken in an effort to provide you with optimal care, which includes your follow-up. Under all circumstances we always encourage you to contact your private physician who remains a resource for coordinating your care. When calling for follow-up care, please make the office aware that this follow-up is from your recent emergency room visit. If for any reason you are refused follow-up, please contact the [facility] Emergency Department at and asked to speak to the emergency department charge nurse. If you do not have a primary care doctor, please follow up with the clinics below within 3-5 days. [facility] - Primary Care [address] [place] [address] [id number] [address] [address] - My Orders Last 24 Hours: My Active Orders 10/23/20 17:31 Cardiac Monitoring [RC] . DIRECTED Pulse Oximetry [RC] ASDIRECTED Sodium Chloride 0.9% [Saline Flush] 10 ml FLUSH ASDIRECTED PRN Sodium Chloride 0.9% [Saline Flush] 2.5 ml FLUSH ASDIRECTED PRN Saline Lock Insert [OM.PC] Stat 10/23/20 17:32 EKG Documentation Completion [RC] STAT Chest 1V Frontal [CR] Stat 10/23/20 17:51 Lactated Ringers [Ringers, Lactated] 1,000 ml IV .BOLUS - Assessment/Plan Last 24 Hours: My Active Orders 10/23/20 17:31 Cardiac Monitoring [RC] . DIRECTED Pulse Oximetry [RC] ASDIRECTED Sodium Chloride 0.9% [Saline Flush] 10 ml FLUSH ASDIRECTED PRN Sodium Chloride 0.9% [Saline Flush] 2.5 ml FLUSH ASDIRECTED PRN Saline Lock Insert [OM.PC] Stat 10/23/20 17:32 EKG Documentation Completion [RC] STAT Chest 1V Frontal [CR] Stat 10/23/20 17:51 Lactated Ringers [Ringers, Lactated] 1,000 ml IV .BOLUS
[2020-10-23] MEDS ORDERED: LORazepam 2 MG/ML SDV IVPUSH ONE (17:51)
[2020-10-23] MEDS ORDERED: Lactated Ringers 1,000 ML IV ONE (17:51)
[2020-10-23 18:24] LABS: BLOOD UREA NITROGEN,BUN 12 mg/dL (7.0-18.0); CARBON DIOXIDE,CO2 26.1 mmol/L (21.0-32.0); CHLORIDE,CL 102 mmol/L (98-107); GLUCOSE RANDOM 147 mg/dL (74-106); POTASSIUM,K 3.8 mmol/L (3.5-5.1); SODIUM,NA 140 mmol/L (136-145)
--- NOTE | 2020-10-23 18:36 | CR ---
Indication: Chest pain Technique: Chest 1 view Comparison: October 23, 2019 Findings/Impression: Cardiovascular and mediastinum: Heart size and vasculature are normal in caliber and appearance. Mediastinum is within normal limits. Lungs and pleural space: Lungs are clear. No sign of infiltrate or mass. No sign of pleural effusion. No pneumothorax. Bones and soft tissues: No significant findings. Dictated by Caprice Emanuel MD @ Oct 23 2020 6:34PM Signed by Dr. Caprice Emanuel @ Oct 23 2020 6:34PM
[2020-10-23 23:20] VITALS: BP 155/81; PULSE 74
== END 2020-10-23 19:00 | disposition home or self-care (01) ==
LOC: MW.ED 17:29
DX: F41.9 Anxiety disorder, unspecified (principal); I10 Essential (primary) hypertension; Z88.8 Allergy status to other drugs, medicaments and biological substances; Z79.899 Other long term (current) drug therapy
CPT/HCPCS: 36415; 71045; 80053; 84484; 85025; 93005; 96374; 99285; J2060; J7120

== ENCOUNTER 2021-06-04 15:21 | Emergency (ER) | payer BC, OTHER ==
[2021-06-04] MEDS ORDERED: Sodium Chloride 0.9% 2.5 ML Syringe FLUSH PRN (15:28)
[2021-06-04] MEDS ORDERED: Sodium Chloride 0.9% 10 ML Syringe FLUSH PRN (15:28)
--- NOTE | 2021-06-04 15:28 | EDM.PDOC ---
ED HPI GENERAL MEDICAL PROBLEM - General Stated Complaint: heart palpitations Time Seen by Provider: 06/04/21 15:28 Source of Information: Reports: Patient History Limitations: Reports: No Limitations - History of Present Illness INITIAL COMMENTS - FREE TEXT/NARRATIVE: HISTORY AND PHYSICAL: History of present illness: Patient is a 55-year-old female who presents to the emergency room with complaints of palpitation and anxiety. Patient has a history of ventricular tachycardia and did have an ablation approximately 10 years ago. She has seen our automotive mechanic and been placed on propranolol for palpitations. She states since losing weight and increasing her physical activity she feels that the palpitations have improved greatly. Monday she had a "great deal of stress" and she had sensation of palpitations. Since then she has been worrying about her health which has increased her anxiety, thus increasing her sensation of palpitations. Patient denies any fever, chills, headache, change in vision, syncope or near syncope. Denies any chest pain, back pain, shortness of breath or cough. Denies any abdominal pain, nausea, vomiting, diarrhea, constipation or dysuria. Has not noted any blood in urine or stool. Patient has been eating and drinking appropriately. No recent travel or sick contacts. Review of systems: As per history of present illness and below otherwise all systems reviewed and negative. Past medical history: As per history of present illness and as reviewed below otherwise noncontributory. Surgical history: As per history of present illness and as reviewed below otherwise noncontributory. Social history: See social history for further information Family history: As per history of present illness and as reviewed below otherwise noncontributory. Physical exam: General: Well developed and well nourished. Alert and orientated x 3. Nontoxic in appearance and in no acute distress. Vital signs are stable and have been reviewed by me. Nursing notes were reviewed. HEENT: Atraumatic, normocephalic, pupils equal and reactive bilaterally, negative for conjunctival pallor or scleral icterus, mucous membranes moist, TMs normal bilaterally, throat clear, neck supple, nontender, trachea midline. No drooling or trismus noted. No meningeal signs. No hot potato voice noted. Lungs: Clear to auscultation bilaterally. No wheezes, rales, or rhonchi. Chest nontender. Normal work of breathing, no accessory muscles used. Heart: S1S2, regular rate and rhythm without overt murmur, gallops, or rubs. No JVD. No peripheral edema Abdomen: Soft, nondistended, nontender. Normoactive bowel sounds. Negative for masses or costovertebral tenderness. Skin: Intact, warm, dry. No lesions or rashes noted. Hematologic: No petechiae or purpra. Mucosa appropriate color and normal nail bed color and refill. Extremities: Atraumatic, moves all extremities per self without difficulty or deficits, negative for cords or calf pain. Neurovascular unremarkable. Neuro: Awake, alert, oriented. Cranial nerves II through XII unremarkable. Cerebellum unremarkable. Motor and sensory unremarkable throughout. Exam nonfocal. Psychiatric: Mood and affect are appropriate. Normal thought process. Answering questions appropriately. Please note that the patient was seen and evaluated during the 2019 SARS-CoV-2 novel coronavirus pandemic period. Community viral transmission is ongoing at time of this encounter and the emergency department is operating under pandemic response procedures. Medical Decision Making: Patient is a 55-year-old female who presents to the emergency room with complaints of anxiety and palpitations. Patient was seen in our emergency room a couple months ago for similar episode. At that time she was given some Ativan which she states helped immensely. She does request Ativan at this time. She is agreeable to basic lab work. She denies any chest pain, shortness of breath or palpitations at this time. Her EKG is unremarkable. Vital signs are stable. Patient feels improved. Chest pain is unremarkable. Lab work shows no concerning findings. We did discuss doing a ZIO patch, she would like to proceed with this. She does have an appointment in 2 weeks with the automotive mechanic for further evaluation and management of her medications. I have talked with the patient about today's findings, in addition to providing specific details for plan of care. Reassessment at the time of disposition demonstrates that the patient is in no acute distress. The patient is stable for discharge, counseling was provided and we discussed in great detail signs and symptoms that would prompt them to return to the Emergency Department. Medication, follow up and supportive care measures were reviewed and discussed. Voices understanding and is agreeable to plan of care. Denies any further questions or concerns at this time. Diagnostics: CBC, CMP, TSH, EKG, chest x-ray Therapeutics: Ativan Prescription: None Impression: Anxiety Palpitations Plan: 1. You were evaluated today on an emergent basis. Your cardiac enzymes, thyroid, EKG and chest x-ray are within normal limits. I do feel that your palpitations are related to stress and anxiety. I have ordered for you to have a ZIO patch (endo tech) to be placed and worn over the next 14 days or until it falls off. Results will go to your automotive mechanic. Please keep your appointment that you end of the month. 2. You can alternate Tylenol and ibuprofen as needed for pain and fever management. 3. We encourage you to follow up with your primary care provider and/or recommended specialist in the next few days for re-evaluation and further care/management. 4. If your symptoms should worsen, new symptoms develop or any of the signs and symptoms we discussed should arise please return to the emergency room or call 911 (if needed). Definitive disposition and diagnosis as appropriate pending reevaluation and review of above. - Related Data Allergies Allergy/AdvReac Type Severity Reaction Status Date / Time lisinopril Allergy Anaphylactic Verified 06/04/21 15:38 Shock Home Meds: Home Meds ClonazePAM [KlonoPIN] 0.5 mg PO BID PRN 07/12/16 [History] Cetirizine [ZyrTEC] 10 mg PO DAILY PRN 01/23/18 [History] EPINEPHrine [Epipen] 0.3 mg IM ASDIRECTED PRN 01/23/18 [History] metFORMIN [Glucophage] 500 mg PO BIDMEALS #60 tab 01/23/18 [Rx] Propranolol [Inderal] 50 mg PO TID 05/04/20 [History] hydroCHLOROthiazide [Hydrochlorothiazide] 25 mg PO DAILY #30 tablet 05/04/20 [Rx] Past Medical History - Past Health History Medical/Surgical History: Denies Medical/Surgical History HEENT History: Reports: None Cardiovascular History: Reports: Hypertension, Other (See Below) Other Cardiovascular History: heart ablation;SVT Respiratory History: Reports: None Gastrointestinal History: Reports: None Genitourinary History: Reports: None [employer]IST History: Reports: Musculoskeletal History: Reports: None Neurological History: Reports: None Psychiatric History: Reports: Anxiety, PTSD Endocrine/Metabolic History: Reports: None Hematologic History: Reports: None Immunologic History: Reports: None Oncologic (Cancer) History: Reports: None Dermatologic History: Reports: None - Infectious Disease History Infectious Disease History: Reports: Chicken Pox - Past Surgical History Head Surgeries/Procedures: Reports: None HEENT Surgical History: Reports: Other (See Below) Other HEENT Surgeries/Procedures: Rhinoplasty Cardiovascular Surgical History: Reports: Cardiac Ablation Respiratory Surgical History: Reports: None GI Surgical History: Reports: None Female Surgical History: Reports: None Endocrine Surgical History: Reports: None Musculoskeletal Surgical History: Reports: None Oncologic Surgical History: Reports: None Dermatological Surgical History: Reports: None Social & Family History - Family History Family Medical History: No Pertinent Family History - Caffeine Use Caffeine Use: Reports: None ED ROS GENERAL - Review of Systems Review Of Systems: Comprehensive ROS is negative, except as noted in HPI. ED EXAM, GENERAL - Physical Exam Exam: See Below Course - Vital Signs Last Recorded V/S: Last Vital Signs Temp 98.3 F 06/04/21 15:35 Pulse 69 06/04/21 16:38 Resp 18 06/04/21 15:35 BP 147/80 H 06/04/21 16:38 Pulse Ox 98 06/04/21 16:38 - Orders/Labs/Meds Orders: Active Orders 24 hr Category Date Time Status Sodium Chloride 0.9% [Saline Flush] Med 06/04/21 15:28 Active 10 ml FLUSH ASDIRECTED PRN Sodium Chloride 0.9% [Saline Flush] Med 06/04/21 15:28 Active 2.5 ml FLUSH ASDIRECTED PRN Saline Lock Insert [OM.PC] Stat Oth 06/04/21 15:28 Ordered Medication Orders Sodium Chloride (Sodium Chloride 0.9% 10 Ml Syringe) 10 ml FLUSH ASDIRECTED PRN PRN Reason: Keep Vein Open Last Admin: 06/04/21 15:59 Dose: 10 ml Documented by: RISSA Sodium Chloride (Sodium Chloride 0.9% 2.5 Ml Syringe) 2.5 ml FLUSH ASDIRECTED PRN PRN Reason: Keep Vein Open Last Admin: 06/04/21 15:59 Dose: 2.5 ml Documented by: RISSA Labs: Laboratory Tests 06/04/21 06/04/21 06/04/21 Range/Units 15:50 15:50 15:50 WBC 8.36 (4.0-11.0) K/uL RBC 4.66 (4.30-5.90) M/uL Hgb 13.6 (12.0-16.0) g/dL Hct 40.7 (36.0-46.0) % MCV 87.3 (80.0-98.0) fL MCH 29.2 (27.0-32.0) pg MCHC 33.4 (31.0-37.0) g/dL RDW Std Deviation 44.8 (28.0-62.0) fl RDW Coeff of Sulma 14 (11.0-15.0) % Plt Count 230 (150-400) K/uL MPV 11.20 (7.40-12.00) fL Neut % (Auto) 63.2 (48.0-80.0) % Lymph % (Auto) 22.0 (16.0-40.0) % [place] % (Auto) 9.2 (0.0-15.0) % Eos % (Auto) 5.0 (0.0-7.0) % Baso % (Auto) 0.6 (0.0-1.5) % Neut # (Auto) 5.3 (1.4-5.7) K/uL Lymph # (Auto) 1.8 (0.6-2.4) K/uL [place] # (Auto) 0.8 (0.0-0.8) K/uL Eos # (Auto) 0.4 (0.0-0.7) K/uL Baso # (Auto) 0.1 (0.0-0.1) K/uL Nucleated RBC % 0.0 /100WBC Nucleated RBCs # 0 K/uL Sodium 137 (136-145) mmol/L Potassium 4.3 (3.5-5.1) mmol/L Chloride 99 (98-107) mmol/L Carbon Dioxide 27.1 (21.0-32.0) mmol/L BUN 16 (7.0-18.0) mg/dL Creatinine 0.8 (0.6-1.0) mg/dL Est Cr Clr Drug Dosing 74.38 mL/min Estimated GFR (MDRD) > 60.0 ml/min Glucose 159 H (74-106) mg/dL Calcium 8.9 (8.5-10.1) mg/dL Total Bilirubin 0.4 (0.2-1.0) mg/dL AST 18 (15-37) IU/L ALT 33 (14-63) IU/L Alkaline Phosphatase 94 (46-116) U/L Troponin I < 0.050 (0.000-0.056) ng/mL Total Protein 7.3 (6.4-8.2) g/dL Albumin 3.6 (3.4-5.0) g/dL Globulin 3.7 (2.6-4.0) g/dL Albumin/Globulin Ratio 1.0 (0.9-1.6) TSH, Ultra Sensitive 0.51 (0.36-3.74) uIU/mL Meds: Medications Generic Name Dose Route Start Last Admin Trade Name Freq PRN Reason Stop Dose Admin Sodium Chloride 10 ml 06/04/21 15:28 06/04/21 15:59 Sodium Chloride 0.9% 10 Ml Syringe FLUSH 10 ml ASDIRECTED PRN Administration Keep Vein Open Sodium Chloride 2.5 ml 06/04/21 15:28 06/04/21 15:59 Sodium Chloride 0.9% 2.5 Ml Syringe FLUSH 2.5 ml ASDIRECTED PRN Administration Keep Vein Open Discontinued Medications Generic Name Dose Route Start Last Admin Trade Name Freq PRN Reason Stop Dose Admin Sodium Chloride 1,000 mls @ 999 mls/hr 06/04/21 15:57 06/04/21 15:59 Normal Saline IV 06/04/21 16:57 999 mls/hr STAT ONE Administration Lorazepam 1 mg 06/04/21 15:57 06/04/21 16:04 Lorazepam 2 Mg/Ml Sdv IVPUSH 06/04/21 15:58 1 mg ONETIME ONE Administration Departure - Departure Time of Disposition: 16:58 Disposition: Home, Self-Care 01 Clinical Impression: Anxiety, Palpitations Instructions: Managing Anxiety, Adult Referrals: Te Lacy MD [Primary Care Provider] - Forms: ED Department Discharge Additional Instructions: The following information is given to patients seen in the emergency department who are being discharged to home. This information is to outline your options for follow-up care. We provide all patients seen in our emergency department with a follow-up referral. The need for follow-up, as well as the timing and circumstances, are variable depending upon the specifics of your emergency department visit. If you don't have a primary care physician on staff, we will provide you with a referral. We always advise you to contact your personal physician following an emergency department visit to inform them of the circumstance of the visit and for follow-up with them and/or the need for any referrals to a consulting specialist. The emergency department will also refer you to a specialist when appropriate. This referral assures that you have the opportunity for follow-up care with a specialist. All of these measure are taken in an effort to provide you with optimal care, which includes your follow-up. Under all circumstances we always encourage you to contact your private physi angela who remains a resource for coordinating your care. When calling for follow- up care, please make the office aware that this follow-up is from your recent emergency room visit. If for any reason you are refused follow-up, please contact the [facility] Emergency Department at and asked to speak to the emergency department charge nurse. [facility] [address] [place] [id number] [place] [address] Thank you for choosing the [facility] emergency department in [place] for your medical needs today. It was a pleasure caring for you. Today you were seen in the emergency department for anxiety and palpitations. 1. You were evaluated today on an emergent basis. Your cardiac enzymes, thyroid, EKG and chest x-ray are within normal limits. I do feel that your palpitations are related to stress and anxiety. I have ordered for you to have a ZIO patch (endo tech) to be placed and worn over the next 14 days or until it falls off. Results will go to your automotive mechanic. Please keep your appointment that you end of the month. 2. You can alternate Tylenol and ibuprofen as needed for pain and fever manage ment. 3. We encourage you to follow up with your primary care provider and/or recommended specialist in the next few days for re-evaluation and further care/management. 4. If your symptoms should worsen, new symptoms develop or any of the signs and symptoms we discussed should arise please return to the emergency room or call 911 (if needed). Sepsis Event Note (ED) - Focused Exam Vital Signs: Vital Signs Temp Pulse Resp BP Pulse Ox 06/04/21 16:38 69 147/80 H 98 06/04/21 16:13 72 154/89 H 97 06/04/21 15:35 98.3 F 76 18 183/92 H 96 - My Orders Last 24 Hours: My Active Orders 06/04/21 15:28 Sodium Chloride 0.9% [Saline Flush] 10 ml FLUSH ASDIRECTED PRN Sodium Chloride 0.9% [Saline Flush] 2.5 ml FLUSH ASDIRECTED PRN Saline Lock Insert [OM.PC] Stat - Assessment/Plan Last 24 Hours: My Active Orders 06/04/21 15:28 Sodium Chloride 0.9% [Saline Flush] 10 ml FLUSH ASDIRECTED PRN Sodium Chloride 0.9% [Saline Flush] 2.5 ml FLUSH ASDIRECTED PRN Saline Lock Insert [OM.PC] Stat
[2021-06-04] MEDS ORDERED: LORazepam 2 MG/ML SDV IVPUSH ONE (15:57)
[2021-06-04] MEDS ORDERED: Sodium Chloride 0.9% 1,000 ML IV ONE (15:57)
--- NOTE | 2021-06-04 16:20 | CR ---
INDICATION: Chest pain. TECHNIQUE: Chest 1 view. COMPARISON: Chest radiograph 10/23/2020. FINDINGS: No focal consolidation, pleural effusion, or pneumothorax. Heart size within normal limits for portable technique. Normal pulmonary vascularity. The bones are unremarkable. IMPRESSION: No acute cardiopulmonary findings. Dictated by Leatha Dupree MD @ 06/04/2021 4:18:39 PM (Electronically Signed)
--- NOTE | 2021-06-04 16:27 | PCM.EKG ---
#1 Interpretation EKG Date: 06/04/21 Time: 15:34 Rhythm: NSR Rate (Beats/Min): 69 [place]: Normal P-Wave: Present QRS: Normal ST-T: Normal QT: Normal Comparison: No Change (10/23/20) EKG Interpretation Comments: Sinus Rhythm
[2021-06-04 16:42] LABS: BLOOD UREA NITROGEN,BUN 16 mg/dL (7.0-18.0); CARBON DIOXIDE,CO2 27.1 mmol/L (21.0-32.0); CHLORIDE,CL 99 mmol/L (98-107); GLUCOSE RANDOM 159 mg/dL (74-106); POTASSIUM,K 4.3 mmol/L (3.5-5.1); SODIUM,NA 137 mmol/L (136-145)
[2021-06-04 17:33] VITALS: BP 134/92; PULSE 70
== END 2021-06-04 17:34 | disposition home or self-care (01) ==
LOC: MW.ED 15:21
DX: F41.9 Anxiety disorder, unspecified (principal); I10 Essential (primary) hypertension; Z88.8 Allergy status to other drugs, medicaments and biological substances; Z79.899 Other long term (current) drug therapy
CPT/HCPCS: 36415; 71045; 80053; 84443; 84484; 85025; 93005; 96374; 99285; J2060; J7030

== ENCOUNTER 2022-11-05 17:51 | Emergency (ER) | payer BC ==
[2022-11-05] MEDS ORDERED: Ondansetron 4 MG/2 ML SDV IVPUSH ONE (18:16)
[2022-11-05] MEDS ORDERED: Morphine 4 MG/ML Syringe IVPUSH ONE (18:16)
[2022-11-05] MEDS ORDERED: Albuterol 0.083% 2.5 MG/3 ML Neb Soln NEB ONE (18:17)
[2022-11-05 18:50] LABS: CARBON DIOXIDE,CO2 27.5 mmol/L (21.0-32.0); POTASSIUM,K 4.6 mmol/L (3.5-5.1)
[2022-11-05] MEDS ORDERED: Iopamidol 755 MG/ML 500 ML Multipack Bottle IVPUSH ONE (19:28)
[2022-11-05 21:16] VITALS: BP 161/70; PULSE 67
== END 2022-11-05 21:40 | disposition home or self-care (01) ==
LOC: MW.ED 17:51
DX: R06.02 Shortness of breath (principal); R07.89 Other chest pain; R10.11 Right upper quadrant pain; E11.9 Type 2 diabetes mellitus without complications; I10 Essential (primary) hypertension; E66.9 Obesity, unspecified; Z68.35 Body mass index [BMI] 35.0-35.9, adult; Z79.899 Other long term (current) drug therapy; Z79.84 Long term (current) use of oral hypoglycemic drugs; Z88.8 Allergy status to other drugs, medicaments and biological substances
CPT/HCPCS: 36415; 71045; 71275; 80053; 83735; 84484; 85025; 85610; 85730; 87635; 93005; 96374; 96375; 99285; J2270; J2405; Q9967; 93010; 99284; J7620-GY; U0002

== ENCOUNTER 2023-04-15 16:35 | Emergency (ER) | payer BC ==
[2023-04-15] MEDS ORDERED: Sodium Chloride 0.9% 2.5 ML Syringe FLUSH PRN (17:13)
[2023-04-15] MEDS ORDERED: Sodium Chloride 0.9% 10 ML Syringe FLUSH PRN (17:13)
[2023-04-15] MEDS ORDERED: Sodium Chloride 0.9% 1,000 ML IV ONE (17:15)
[2023-04-15 18:08] LABS: A/G RATIO 0.7 (0.9-1.6); ALBUMIN 3.2 g/dL (3.4-5.0); BILIRUBIN TOTAL 0.5 mg/dL (0.2-1.0); CREATININE 0.9 mg/dL (0.6-1.0); EST CRCL DRUG DOSING (CG) 64.56 mL/min; POTASSIUM,K 4.9 mmol/L (3.5-5.1); PROTEIN TOTAL,TP 7.5 g/dL (6.4-8.2)
[2023-04-15] MEDS ORDERED: Ibuprofen 600 MG Tab PO ONE (18:12)
[2023-04-15 18:28] LABS: BASOPHILS PERCENT AUTO 0.2 % (0.0-1.5); EOSINOPHILS ABSOLUTE AUTO 0.4 K/uL (0.0-0.7); EOSINOPHILS PERCENT AUTO 4.4 % (0.0-7.0); HEMATOCRIT 38.6 % (36.0-46.0); HEMOGLOBIN 12.8 g/dL (12.0-16.0); LYMPHOCYTES ABSOLUTE AUTO 0.5 K/uL (0.6-2.4); MEAN CORPUSCULAR HEMOGLOBIN 29.2 pg (27.0-32.0); MEAN CORPUSCULAR HGB CONC 33.2 g/dL (31.0-37.0); MEAN CORPUSCULAR VOLUME 87.9 fL (80.0-98.0); MONOCYTES ABSOLUTE AUTO 0.6 K/uL (0.0-0.8); MONOCYTES PERCENT AUTO 6.6 % (0.0-15.0); NEUTROPHILS ABSOLUTE AUTO 7.2 K/uL (1.4-5.7); NEUTROPHILS PERCENT AUTO 82.8 % (48.0-80.0); NRBC ABSOLUTE 0 K/uL; PLATELET COUNT,PLT 227 K/uL (150-400); RED BLOOD CELL COUNT 4.39 M/uL (4.30-5.90); WHITE BLOOD CELL COUNT,WBC 8.68 K/uL (4.0-11.0)
[2023-04-15 18:37] LABS: CORONAVIRUS COVID-19 NAA NEGATIVE (NEGATIVE); INFLUENZA A NAA NEGATIVE (NEGATIVE); INFLUENZA B NAA NEGATIVE (NEGATIVE); RESPIRATORY SYNCYTIAL VIR NAA NEGATIVE (NEGATIVE)
[2023-04-15 18:53] LABS: APPEARANCE,URINE CLEAR; BILIRUBIN,URINE NEGATIVE (NEGATIVE); COLOR,URINE YELLOW; GLUCOSE,URINE NEGATIVE (NEGATIVE); KETONES,URINE NEGATIVE (NEGATIVE); LEUKOCYTE ESTERASE,URINE TRACE (NEGATIVE); NITRITE,URINE NEGATIVE (NEGATIVE); OCCULT BLOOD,URINE NEGATIVE (NEGATIVE); PH,URINE 5.5 (5.0-8.0); PROTEIN,URINE NEGATIVE (NEGATIVE); UROBILINOGEN,URINE 0.2 EU/dL (<2.0)
[2023-04-15 19:07] LABS: BACTERIA,URINE FEW (NEGATIVE); EPITHELIAL CELLS,URINE OCCASIONAL (NONE-FEW); RBC,URINE 0-1 (0-2/HPF)
[2023-04-15] MEDS ORDERED: Iopamidol 755 MG/ML 500 ML Multipack Bottle IVPUSH ONE (19:25)
[2023-04-15] MEDS ORDERED: Acetaminophen 500 MG Tab PO ONE (21:44)
[2023-04-15] MEDS ORDERED: Cefepime 2 GM in Sodium Chloride 0.9% 50 ML IV ONE (21:55)
[2023-04-15 23:11] VITALS: BP 127/70; PULSE 72
== END 2023-04-15 23:00 | disposition home or self-care (01) ==
LOC: MW.ED 16:35
DX: J90 Pleural effusion, not elsewhere classified (principal); N30.00 Acute cystitis without hematuria; I10 Essential (primary) hypertension; E11.9 Type 2 diabetes mellitus without complications; Z93.2 Ileostomy status; Z20.822 Contact with and (suspected) exposure to COVID-19; Z79.84 Long term (current) use of oral hypoglycemic drugs; Z79.899 Other long term (current) drug therapy; Z88.5 Allergy status to narcotic agent; Z88.8 Allergy status to other drugs, medicaments and biological substances
CPT/HCPCS: 0241U; 36415; 71045; 74177; 80053; 81001; 83605; 83690; 83735; 85025; 85610; 87040; 96361; 96365; 99284; A9270; J0692; J3490; J7030; Q9967

== ENCOUNTER 2023-04-21 19:59 | Emergency (ER) | payer BC ==
[2023-04-21] MEDS ORDERED: Sodium Chloride 0.9% 10 ML Syringe FLUSH PRN (20:13)
[2023-04-21] MEDS ORDERED: Sodium Chloride 0.9% 2.5 ML Syringe FLUSH PRN (20:13)
[2023-04-21 20:33] LABS: BASOPHILS PERCENT AUTO 0.6 % (0.0-1.5); EOSINOPHILS ABSOLUTE AUTO 0.5 K/uL (0.0-0.7); EOSINOPHILS PERCENT AUTO 8.3 % (0.0-7.0); HEMATOCRIT 40.7 % (36.0-46.0); HEMOGLOBIN 13.5 g/dL (12.0-16.0); LYMPHOCYTES ABSOLUTE AUTO 0.8 K/uL (0.6-2.4); MEAN CORPUSCULAR HEMOGLOBIN 29.2 pg (27.0-32.0); MEAN CORPUSCULAR HGB CONC 33.2 g/dL (31.0-37.0); MEAN CORPUSCULAR VOLUME 88.1 fL (80.0-98.0); MONOCYTES ABSOLUTE AUTO 0.7 K/uL (0.0-0.8); MONOCYTES PERCENT AUTO 10.7 % (0.0-15.0); NEUTROPHILS ABSOLUTE AUTO 4.4 K/uL (1.4-5.7); NEUTROPHILS PERCENT AUTO 67.4 % (48.0-80.0); NRBC ABSOLUTE 0 K/uL; PLATELET COUNT,PLT 285 K/uL (150-400); RED BLOOD CELL COUNT 4.62 M/uL (4.30-5.90); WHITE BLOOD CELL COUNT,WBC 6.47 K/uL (4.0-11.0)
[2023-04-21 21:01] LABS: A/G RATIO 0.6 (0.9-1.6); ALBUMIN 3.3 g/dL (3.4-5.0); BILIRUBIN TOTAL 0.3 mg/dL (0.2-1.0); CALCIUM 9.6 mg/dL (8.5-10.1); CARBON DIOXIDE,CO2 26.7 mmol/L (21.0-32.0); CREATININE 1.1 mg/dL (0.6-1.0); EST CRCL DRUG DOSING (CG) 52.82 mL/min; POTASSIUM,K 4.8 mmol/L (3.5-5.1); PROTEIN TOTAL,TP 8.5 g/dL (6.4-8.2)
[2023-04-21 21:06] LABS: LACTIC ACID 1.6 mmol/L (0.4-2.0)
[2023-04-21] MEDS ORDERED: Iopamidol 755 MG/ML 500 ML Multipack Bottle IVPUSH ONE (21:17)
[2023-04-21] MEDS ORDERED: Albuterol/Ipratropium 3.0-0.5 MG/3 ML Neb Soln NEB ONE (22:50)
[2023-04-21 23:15] VITALS: BP 118/71; PULSE 71
== END 2023-04-21 23:13 | disposition home or self-care (01) ==
LOC: MW.ED 19:59
DX: R06.00 Dyspnea, unspecified (principal); I10 Essential (primary) hypertension; E11.9 Type 2 diabetes mellitus without complications; Z88.8 Allergy status to other drugs, medicaments and biological substances; Z88.5 Allergy status to narcotic agent; Z79.899 Other long term (current) drug therapy; Z79.84 Long term (current) use of oral hypoglycemic drugs
CPT/HCPCS: 36415; 71046; 71275; 80053; 83605; 83880; 85025; 85379; 93005; 99285; J3490; Q9967; 93010; 99284; J7620-GY